=== PATIENT | female | born 1975 | race Caucasian/White ===

== ENCOUNTER 2017-10-10 17:57 | Emergency (ER) | payer OTHER, SELFPAY ==
[2017-10-10 17:58] VITALS: BP 133/74; PULSE 82; RESP 16; TEMP 36.7; O2SAT 100; BMI 25.1
--- NOTE | 2017-10-10 18:53 | ED.VISSUMM ---
- ER Visit Summary Date of Service: 10/10/17 Chief Complaint: Laceration left index finger History of Present Illness: The patient is a 42 F presenting with laceration to her left index finger. She states that she was leaving work and cut her finger on a piece of metal on her car. Her tetanus is up-to-date. No other injuries. Physical Examination: Vitals are stable. Patient is afebrile. Alert no acute distress. HEENT exam is unremarkable. Lungs are clear and equal bilaterally. Heart is regular rate and rhythm. Extremities 1 cm left index finger flap laceration to the distal finger pad. Tendon function is normal. Normal cap refill. Skin is warm and dry. No focal neurologic deficit. Remainder of exam is unremarkable. Emergency Department Course and Treatment: Digital block was performed. Wound was irrigated. Anesthetized with lidocaine locally as well. 3, 5-0 simple sutures were placed. Patient tolerated this well. Advised wound care instructions. Disposition: Discharge home Impression: Left index finger laceration, laceration repair This note was generated with [employer] dictation software. It may contain incorrect words, spelling, and punctuation that were not noted in review of the chart prior to signing ED Disposition - Plan for ED Patient: Chief Complaint: Laceration Instructions: ED Laceration Hand Referrals: Krishna Mendieta DO [STAFF PHYSICIAN] - [facility] Doctor,Out of [NON-STAFF] -
--- NOTE | 2017-10-10 18:57 | DCINST.ED_ITS ---
ED Disposition - Plan for ED Patient: Chief Complaint: Laceration Instructions: ED Laceration Hand Referrals: [facility] Doctor,Out of [Primary Care Provider] - Krishna Mendieta DO [STAFF PHYSICIAN] -
[2017-10-10 20:29] VITALS: PULSE 79; RESP 16; O2SAT 99
== END 2017-10-10 20:30 | disposition home or self-care (01) ==
LOC: ED 19:51
PROVIDERS: Emergency Provider Emergency Medicine
DX: S61.211A Laceration without foreign body of left index finger without damage to nail, initial encounter (principal); W26.8XXA Contact with other sharp object(s), not elsewhere classified, initial encounter; Y93.9 Activity, unspecified; Y92.9 Unspecified place or not applicable
CPT/HCPCS: 12001; 99283